=== PATIENT | female | born 1945 | race Caucasian/White ===

== ENCOUNTER 2016-10-31 05:40 | Inpatient (IN) | payer BC ==
[2016-10-28 13:25] LABS: HEMATOCRIT 37.6 % (36.0-48.0); HEMOGLOBIN 11.6 g/dL (12.0-16.0); MEAN CORPUS HGB CONC 30.9 g/dL (32.0-36.0); MEAN CORPUSCULAR HEMOGLOB 24.1 pg (26.0-34.0); MEAN PLATELET VOLUME 10.7 fL (9.2-13.0); PLATELET COUNT 297 10/3/uL (150-400); RBC DISTRIBUTION WIDTH 16.3 % (12.0-16.0); RED CELL COUNT 4.82 10/6/uL (4.0-5.6); WHITE BLOOD CELLS 5.3 10/3/uL (4.5-10.5)
[2016-10-28 13:26] LABS: MANUAL DIFF YES %
[2016-10-28 13:35] LABS: ASCORBIC ACID (UR NOT ORDER) NEG (NEG); BILIRUBIN, URINE NEGATIVE (NEG); KETONE, URINE NEGATIVE (NEG); LEUKOCYTE ESTERASE(NOT OR NEG (NEG); WBC (NOT ORDERED) (RFLEX) < 1 (0-5)
[2016-10-28 13:40] LABS: BUN (BLOOD UREA NITROGEN) 13 MG/DL (6-23); CHLORIDE, SERUM 106 MMOL/L (96-112); CO2 (CARBON DIOXIDE) 29 MMOL/L (24-34); CREATININE 0.99 MG/DL (0.55-1.02); GFR AFRICAN AMERICAN 66 ML/MIN (>=60); GFR NON AFRICAN AMERICAN 57 ML/MIN (>=60); GLUCOSE, SERUM 72 MG/DL (60-99); POTASSIUM, SERUM 4.6 MMOL/L (3.5-5.3); SODIUM, SERUM 142 MMOL/L (135-148)
[2016-10-28 13:47] LABS: BAND NEUTROPHILS 2 %; BASOPHILS 2 %; BASOPHILS ABSOLUTE (CALC) 0.11 10/3/uL (0.0-0.16); EOSINOPHILS 2 %; EOSINOPHILS ABSOLUTE (CALC) 0.11 10/3/uL (0.0-0.53); LYMPHOCYTES 21 %; LYMPHOCYTES ABSOLUTE (CALC) 1.11 10/3/uL (0.67-4.30); MONOCYTES 11 %; MONOCYTES ABSOLUTE (CALC) 0.58 10/3/uL (0.21-1.20); NEUTROPHILS ABSOLUTE (CALC) 3.39 10/3/uL (2.02-8.40); PLATELET ESTIMATE ADQ (ADEQUATE); POLYCHROMASIA 1+ (2-5/OIF) (0-1/OIF); SEGMENTED NEUTROPHIL (0) 62 %; TOTAL NUCLEATED CELLS 100
--- NOTE | ~2016-10-31 | OP ---
Record Of Operation [facility] [address] [place]. [address] NAME: ZAHIRA DAO : 41 STATUS : DIS IN PAT#: [id number] AGE: 71 ADM/REG DATE : 10/31/16 MR#: [id number] REPORT SERV DATE: 12/11/16 DICTATED BY: JOSE STAHL DATE: 10/31/16 REPORT STATUS : Draft TRANSCRIBED BY: MODL DATE: 10/31/16 DATE OF PROCEDURE: 10/31/2016 OPERATIVE SURGEON: Jose Stahl MD OPERATIVE DITCHING MACHINE ENGINEER: JORGE Tom COMPLICATIONS: None. ESTIMATED BLOOD LOSS: Less than 125 mL. DISPOSITION: Stable to recovery room. ANESTHESIA: General with interscalene block augmentation for postoperative pain control. PREOPERATIVE DIAGNOSES: 1. Right shoulder pain. 2. End-stage posttraumatic glenohumeral joint osteoarthritis, status post proximal humerus fracture. POSTOPERATIVE DIAGNOSES: 1. Right shoulder pain. 2. End-stage posttraumatic glenohumeral joint osteoarthritis, status post proximal humerus fracture. OPERATIVE PROCEDURE: 1. Right shoulder examination under anesthesia. 2. Right total shoulder arthroplasty using [employer] comprehensive total shoulder system. 3. Cortisone injection under sterile conditions, left shoulder. IMPLANTS USED: 4 mm small glenoid component with Regenerex post, an 8 x 83 mm mini humeral stem, and a 46 x 18 mm modular head with an E offset with a standard taper adapter. OPERATIVE PROCEDURE: The diagnoses listed above as well as the recommended surgical procedure and risks and benefits thereof were discussed in full detail with Mrs. Dao and family on the morning of 10/31/2016. The patient and family asked appropriate questions which were answered to their satisfaction. Ms. Dao is known to be high-risk patient for perioperative deep venous thrombosis. She had a history of pulmonary embolus after previous lower extremity surgery. She is being managed by Dr. Amaro, her software development advisor and has been placed on Lovenox 100 mg subcu b.i.d. preoperatively and will continue for the first four days postoperatively. We are following Dr. Amaro' recommendations. The patient understands that even with the prophylaxis, there is a risk of deep venous thrombosis in the perioperative period. We will have to be vigilant about following the protocol and doing everything we can to minimize this. Knowing this risk, the patient has elected to proceed with operative intervention. An informed consent was signed, witnessed, and place in the chart. The right upper extremity was marked for confirmation and an Record Of Operation [address] [place]. [address] NAME: ZAHIRA DAO : 41 STATUS : DIS IN PAT#: [id number] AGE: 71 ADM/REG DATE : 10/31/16 MR#: [id number] REPORT SERV DATE: 12/11/16 DICTATED BY: JOSE STAHL DATE: 10/31/16 REPORT STATUS : Draft TRANSCRIBED BY: LINDSAY DATE: 10/31/16 interscalene block was placed by the anesthesia team with good success. The patient was then wheeled to the operative arena where general endotracheal anesthesia was administered. A cortisone injection was administered into the right shoulder under sterile conditions. The patient tolerated the procedure well. A Band-Aid was applied. The injection consisted of 40 mg of Depo-Medrol mixed with 5 mL of Marcaine without epinephrine. The patient was placed in the beachchair position with all nonoperative extremities and head well-padded and secured for the duration of the case. The patient received pre-operative antibiotics. A surgical pause was performed confirming the correct patient as well as the proper surgical site and procedure. All present were in agreement. All standard anatomical landmarks as well as deltopectoral incision site were demarcated using a sterile marking pin. A 10-blade was used to create an 8 cm curvilinear incision just lateral to the coracoid process and directed towards the lateral insertion of the deltoid. The soft tissues were dissected down sharply to expose the deltopectoral fascia. The cephalic vein and the fat stripe were identified. The vein was retracted medially using careful sharp dissection. Next, a [place] Phillips retractor was placed retracting the deltoid laterally and the pectoralis and coracobrachialis medially. There was abundant scar tissue formation noted within the deltopectoral interval likely due to the trauma of the original fracture in the past. Care was taken to carefully dissect out all additional scar tissue to free up the next surgical layer and to expose the clavipectoral fascia. The deltopectoral interval was the further exposed and the clavipectoral fascia was identified. Electrocautery was used to split the clavipectoral fascia exposing the anterior surface of the subscapularis. The lesser tuberosity was identified and the subscapularis was released 1 cm medial to the lesser tuberosity. The subscapularis was then tagged using Fiber Wire suture for later repair. The biceps tendon was then released and tagged as well for later tenodesis. The glenohumeral joint was then dislocated and the humeral head was brought out the operative wound very carefully. All osteophytes were then removed using a rongeur. Our starting awl was used with increasing sizes of diaphyseal reamers to obtain the best fit with excellent cortical chatter. Because the fracture malunion, the humeral head was displaced laterally and in valgus position. Great care was taken to align the diaphyseal reamers with the shaft of the humerus and to avoid angulation or displacement in relation to the shaft. This was complicated by the fact that the malunion had healed in a valgus and retroverted position. We were able to identify the canal of the humerus and stayed true to this axis as opposed to the fracture malunion. The intramedullary cutting jig was then assembled and set with the appropriate version to meet the patient's normal anatomy. An oscillating saw was then used to make our proximal humeral cut. The proximal humeral portion of the head was then taken to the back table and measured and matched up with our trial implants. Next, the broaches were used in increasing sizes up to the size which fit most perfectly. The head protector was placed and the proximal humerus was retracted posteriorly and inferiorly out of the way of the glenoid. The labrum was then excised in full using electrocautery. All additional osteophytes and osteochondral loose bodies were removed. Next, the glenoid reamers were used to ream the glenoid down to a healthy bleeding bone surface. Our central peg hole was then drilled and our peg guide was used to drill the subsequent three peg holes. A coring drill was then used to core for the glenoid post. A trial glenoid was then placed and found to fit perfectly. Next, the cement was mixed and placed into the peg holes. A polyethylene glenoid was assembled with an appropriate post and tapped into place. An excellent scratch fit was obtained. Pulsatile lavage was used to Record Of Operation [address] [place]. [address] NAME: ZAHIRA DAO : 41 STATUS : DIS IN PAT#: [id number] AGE: 71 ADM/REG DATE : 10/31/16 MR#: [id number] REPORT SERV DATE: 12/11/16 DICTATED BY: JOSE STAHL DATE: 10/31/16 REPORT STATUS : Draft TRANSCRIBED BY: LINDSAY DATE: 10/31/16 irrigate this implant as well as the glenohumeral joint. The proximal humerus was again brought out the operative wound. Trial humeral head implants were then tested. The stem was implanted into the proximal humerus after copious irrigation with sterile saline. This was impacted into place. Our Versa Dial was set and then impacted on the back table with an excellent Heath-Taper fit. This was then placed into the proximal humeral stem component and impacted into place with excellent security. At this juncture, the glenohumeral joint was then reduced once again. The glenohumeral joint alignment was near anatomic. Irrigation was used under pulsatile lavage to irrigate out the operative wound as well as the implants. Bone holes had been predrilled through the lesser tuberosity and four #2 Fiber Wire sutures were passed through this region. These were then taken through the soft tissues laterally and then tied down to our previously placed subscapularis sutures. An excellent repair of the subscapularis was obtained back down to the lesser tuberosity with no instability whatsoever. The biceps tendon was then tenodesed. The rotator interval was then closed also with #2 Fiber Wire suture. This layer was then again washed out with pulsatile lavage and copious amounts of sterile normal saline. The deltopectoral interval was closed with 2-0 undyed Vicryl. 2-0 undyed Vicryl was used to close the subcutaneous layer and a running Monocryl was placed below the skin. Steri-Strips were applied. Sterile dressing was then secured with Medipore tape. The patient was placed in an Ultra-Sling for post-operative immobilization. The patient was then awakened from anesthesia without difficulty and transferred to the post-anesthesia care unit in stable condition where the postoperative examination was within normal limits understanding that the interscalene block was still in effect. A lengthy discussion was held with the patient's family detailing all operative findings as well as procedures performed with all questions answered to their satisfaction. Again we will follow Dr. Amaro' recommendations for DVT prophylaxis. We will keep the patient on 100 mg of subcutaneous Lovenox injected b.i.d. She can also restart her Jantoven as soon as Dr. Amaro would like her to. We will also encourage her to work on range of motion exercises to the elbow, forearm, wrist, and hand immediately in an effort to increase circulation and reduce the risk of venous stasis. The patient understands these details and has agreed to comply. CCS/MODL Jose Stahl M.D. / [id number] CC: Jose Stahl M.D.
--- NOTE | ~2016-10-31 | DS ---
Discharge Summary [facility] [address] [place]. [address] NAME: ZAHIRA LEAL : 41 STATUS : DIS IN PAT#: [id number] AGE: 71 ADM/REG DATE : 10/31/16 MR#: [id number] REPORT SERV DATE: 11/22/16 DICTATED BY: SILVANO STAHL DATE: 11/21/16 REPORT STATUS : Draft TRANSCRIBED BY: LINDSAY DATE: 11/21/16 Data Collection from hospitalization DISCHARGE DIAGNOSES: 1. Right shoulder pain. 2. End-stage posttraumatic glenohumeral joint osteoarthritis, status post proximal humerus fracture. 3. Osteoporosis. 4. Toe fungus. 5. History of pulmonary embolus and deep venous thrombosis. 6. Former smoker. CONSULTATIONS: Angelo George APN PROCEDURES PERFORMED: 1. Right shoulder examination under anesthesia; right total shoulder arthroplasty using [employer] comprehensive total shoulder system; cortisone injection under sterile conditions, right shoulder on 10/31/2016. 2. Right shoulder open hematoma evacuation on 11/05/2016. 3. Venous Doppler ultrasound of the right upper extremity. 4. Arteriogram of the aortic arch and right upper extremity on 11/05/2016. 5. CTA of the chest on 11/06/2016. PATHOLOGY: Right humeral head - benign bone and cartilage with degenerative joint disease with extensive cartilaginous eburnation, focal osteoblastic and osteoclastic activity and medullary fibrosis, focal medullary hemorrhage present, no metastatic malignancy or lymphoid or plasma cell neoplasm. MEDICATIONS: Bumex 1 mg daily, vitamin B12 500 mcg every morning, Os-Isaac plus D 1000 mg every day at bedtime, vitamin D3 2000 units every morning, Colace 100 mg twice a day, Flonase nasal spray two sprays in each nostril at bedtime, MiraLAX powder one packet daily, Lamisil 250 mg every day at bedtime, Jantoven 6 mg daily as instructed, Tylenol 500 mg every six hours as needed, Mylanta 30 mL as needed, [place] 5/325 one tablet every four hours as needed, Robaxin 750 mg twice a day as needed, milk of magnesia 30 mL as needed, Zofran 4 mg IV every four hours as needed, Prolia 60 mg subcutaneously every six months as instructed, iron sulfate 300 mg three times a day with meals as instructed, and Percocet 5/325 as instructed. CONDITION AT DISCHARGE: Stable. DISPOSITION: The patient was discharged to [facility] on a cardiac/Coumadin diet with activities as instructed. HOSPITAL COURSE: This is a 71-year-old female who has had right shoulder pain. She was found to have end-stage posttraumatic glenohumeral joint osteoarthritis, status post proximal humerus fracture. Treatment options were discussed and it was elected to proceed with surgical intervention. She was admitted to the hospital at this time for further evaluation and treatment. Discharge Summary [facility] [address] [place]. [address] NAME: ZAHIRA LEAL : 41 STATUS : DIS IN PAT#: [id number] AGE: 71 ADM/REG DATE : 10/31/16 MR#: [id number] REPORT SERV DATE: 11/22/16 DICTATED BY: SILVANO STAHL DATE: 11/21/16 REPORT STATUS : Draft TRANSCRIBED BY: LINDSAY DATE: 11/21/16 Upon admission, she was taken to the operating room where she underwent the above-mentioned procedure. She tolerated this well, and there were no complications. On postop day #1, she was evaluated by Physical Therapy. She was doing well. She still complained of some back pain. She had normal distal pulses. MODESTO/SCDs remained in place bilaterally. H and H had decreased. She was transfused two units of packed red blood cells. On postop day #2, she was up sitting in a bedside chair. She did have some nausea. She complained of pain in the right shoulder, that was 6/10. She was using the pain pump. CPAP was used at bedtime. On 11/03/2016, the patient was complaining that the nurse was giving her pain medications due to hypotension. It was explained to the patient that narcotics would decrease her blood pressure more. INR level was 1.8. On 11/03/2016, the patient was seen by Angelo George. Due to her history of pulmonary embolus with acute blood loss anemia postoperatively, her hemoglobin had dropped from 11.6 preoperatively to 7.4 postoperatively. She received two units of packed red blood cells and hemoglobin went back up to 9.3. On the day of this consult, it went back down to 6.0 and she was currently receiving two more units of packed red blood cells. She was started on Lovenox. Her Coumadin was resumed. INR level was currently 1.8. Lovenox was going to be stopped. That evening's dose of Coumadin would be held. INR level was currently 1.8. She had some surgical site oozing. We were hopeful that after stopping Lovenox and holding Coumadin that surgical site oozing would stop and hemoglobin would stabilize without having to reverse INR, but we would do so if necessary with fresh frozen plasma and vitamin K. On 11/04/2016, she was complaining of the inability to move her right upper extremity. Her pain was controlled. She was tolerating oral intake. The patient had increased ecchymosis and edema of the right shoulder to the elbow. It was felt that she had a developing hematoma due to necessary DVT prophylaxis with the patient with a known history of DVT/pulmonary embolus. She was found to have a jfdbezjh-dw-hdemi hematoma at the surgical site. She had undergone a venous Doppler ultrasound of the right upper extremity. There was no evidence of deep venous thrombosis. There was a large hematoma in the right arm that measured 14 cm x 3.6 cm. Hemoglobin level was still 6.0 after two more units of packed red blood cells. INR level was 1.9. The patient was complaining of a lot of pain and pressure in the right shoulder secondary to the hematoma. White count was 12.4. We were going to reverse Coumadin. Vitamin K was given as well as two units of fresh frozen plasma. She was transfused two more units of packed red blood cells. The following day, arteriogram of the aortic arch and right upper extremity was performed. The patient was taken to the operating room to undergo right shoulder open hematoma evacuation. She tolerated this well, and there were no complications. She received three more units of packed red blood cells. She was reevaluated by Physical Therapy. On 11/06/2016, her pain was much improved. She had decreased right upper extremity edema. Gentle range of motion was being performed. Anticoagulation would be held for 48 hours. INR level was 1.1. She said she was feeling better. A CTA of the chest was performed. On 11/07/2016, her sling was changed to a bigger size. She said she was feeling better. The next day, she was given Coumadin. She was doing much better. The edema in the right upper extremity was resolving, range of motion had increased. Jantoven was going to be restarted. She felt like her right hand nurse liaison was stronger. Over the next couple of days, she was feeling better. She continued to progress. She was ambulating in her room. Discharge Summary [facility] [address] [place]. [address] NAME: ZAHIRA LEAL : 41 STATUS : DIS IN PAT#: [id number] AGE: 71 ADM/REG DATE : 10/31/16 MR#: [id number] REPORT SERV DATE: 11/22/16 DICTATED BY: SILVANO STAHL. DATE: 11/21/16 REPORT STATUS : Draft TRANSCRIBED BY: LINDSAY DATE: 11/21/16 Discharge planning was performed. On 11/11/2016, discharge instructions were given. Due to her improved and stable condition, she was discharged to [facility] with the above-stated instructions. Information collected by: Rachael Bradshaw I submit the above information as my discharge summary. TG/LINDSAY Silvano Stahl M.D. / [id number] CC: Emiliana Rodriguez AZHAR S. [facility]
--- NOTE | ~2016-10-31 | CN ---
Consultation Report [facility] [address] [place]. [address] NAME: ZAHIRA LEAL : 41 STATUS : ADM IN [facility]#: [id number] AGE: 71 ADM/REG DATE : 10/31/16 MR#: [id number] REPORT SERV DATE: 11/03/16 DICTATED BY: ANGELO CERVANTES DATE: 11/03/16 REPORT STATUS : Draft TRANSCRIBED BY: MODL DATE: 11/03/16 NEW CONSULT DATE OF CONSULTATION: 11/03/2016 REASON FOR CONSULT: History of PE with acute blood loss anemia postoperatively HISTORY OF PRESENT ILLNESS: This is a 71-year-old female who has been admitted with a history of osteoarthritis of the glenohumeral joint who is now postop day 3, status post right total shoulder arthroplasty. This lady has a history of PE 7 years ago and a history of DVT remotely with . Before that, she is on permanent Coumadin therapy. The patient has tolerated procedure well; however, postoperatively, her hemoglobin dropped from 11.6 preop to 7.4 postoperatively. She got 2 units of packed red blood cells. Her hemoglobin went up to 9.3, and then went down again to 6.0 today and she is currently receiving a first of two more units of packed red blood cells. She was started on Lovenox 1 mg/kg postoperatively and also her Coumadin was resumed. Her INR is currently 1.8. She is currently hemodynamically stable and currently experiencing no lightheadedness, chest pain, or palpitations. She denies any shortness of breath, chest pain, nausea, vomiting, or abdominal pain, has been tolerating her diet after surgery and been able to move with physical therapy, although she has had significant pain from the right shoulder. PAST MEDICAL HISTORY: 1. History of PE and DVT. 2. Osteoporosis. 3. Toe fungus. PAST SURGICAL HISTORY: Hysterectomy in 2001; bilateral cataracts in 1997; colonoscopy in 2011; right leg fracture, rods and plates inserted in 2011; bilateral leg varicose vein surgery 1979; and apparently repeated again in 2009. SOCIAL HISTORY: The patient is retired. No smoking. No alcohol. FAMILY HISTORY: Noncontributory. REVIEW OF SYSTEMS: A 14-point reviewed with the patient and all other systems were negative except as previously mentioned. ALLERGIES: PENICILLIN. CURRENT MEDICATIONS: 1. Vitamin B12 of 500 mcg p.o. daily. 2. Calcium carbonate with vitamin D 1200 mg p.o. at bedtime. 3. Cholecalciferol 2000 units p.o. daily. 4. Colace 100 mg p.o. b.i.d. Consultation Report [facility] [address] [place]. [address] NAME: ZAHIRA LEAL : 41 STATUS : ADM IN [facility]#: [id number] AGE: 71 ADM/REG DATE : 10/31/16 MR#: [id number] REPORT SERV DATE: 11/03/16 DICTATED BY: ANGELO CERVANTES DATE: 11/03/16 REPORT STATUS : Draft TRANSCRIBED BY: LINDSAY DATE: 11/03/16 5. Enoxaparin 100 mg subcu b.i.d. 6. Pepcid 20 mg p.o. b.i.d. 7. Fluticasone nasal spray daily. 8. Ropivacaine pump. 9. Coumadin 5 mg p.o. daily. 10.Lamisil 250 mg p.o. at bedtime. ALLERGIES: PENICILLIN. PHYSICAL EXAMINATION: VITAL SIGNS: Blood pressure 101/51, heart rate 79, respirations 18, O2 saturation 94% on room air, and temperature 98.4. General: The patient generally cooperative. No apparent distress, awake. Awake, pale. NEURO: Alert and oriented x3. Cranial nerves II through XII grossly intact. Pupils PERRLA. No focal deficits noted. NECK: No JVD. LUNGS: Clear to auscultation bilaterally. Normal respiratory effort. CARDIOVASCULAR: No murmurs auscultated. Regular rhythm. ABDOMEN: Soft, nontender. Active bowel sounds. EXTREMITIES: No edema. Right shoulder has lots of bruising and edema with evidence of hematoma postoperatively to the right surgical shoulder. LABORATORY DATA: Sodium 142, potassium 4.7, chloride 108, BUN 13, creatinine 0.88, glucose 133, calcium 8.1, white blood cells 5.3, hemoglobin 6.0, hematocrit 19.4, platelets 297, and INR 1.8. ASSESSMENT AND PLAN: 1. Right total shoulder arthroplasty, postop day three, further plans per surgery, possibly will need rehab versus home with home health. 2. Obstructive sleep apnea, CPAP at bedtime. 3. History of PE 7 years ago, status post vein stripping with history of DVT with , on permanent Coumadin therapy, currently on home Coumadin and enoxaparin for bridging. INR currently 1.8. 4. Acute blood loss anemia. Hemoglobin is currently 6.0 after two units of packed red cells with patient being started on Lovenox and Coumadin postoperatively. The patient is still on Lovenox and Coumadin. First of two units of packed red blood cells is infusing. We will stop Lovenox, hold tonight's dose of Coumadin. I will not reverse INR at this time unless bleeding continues. We will recheck INR in the morning and recheck hemoglobin two hours after transfusion completes. If hemoglobin is still less than 7.0, we will transfuse further but have the nurse call for further orders this evening if necessary with consideration for reversing Coumadin and will recheck CBC and BMP in the morning. Hopefully, the patient is still oozing at the surgical site which did not stop because of being on the Lovenox immediately postoperatively and now with the Coumadin coming up to 1.8, so hopefully after stopping Lovenox, surgical site oozing will stop and hemoglobin will stabilize without having to reverse INR, but will Consultation Report [address] [place]. [address] NAME: ZAHIRA LEAL : 41 STATUS : ADM IN [facility]#: [id number] AGE: 71 ADM/REG DATE : 10/31/16 MR#: [id number] REPORT SERV DATE: 11/03/16 DICTATED BY: ANGELO CERVANTES DATE: 11/03/16 REPORT STATUS : Draft TRANSCRIBED BY: MEGANL DATE: 11/03/16 do so if necessary with FFP and vitamin K. TDR/MODL Angelo Cervantes APN / [id number] CC: Emiliana Rodriguez MD
--- NOTE | ~2016-10-31 | OP ---
Record Of Operation [facility] [address] [place]. [address] NAME: RADHA DAO : 41 STATUS : DIS IN PAT#: [id number] AGE: 71 ADM/REG DATE : 10/31/16 MR#: [id number] REPORT SERV DATE: 12/13/16 DICTATED BY: JOSE STAHL DATE: 11/05/16 REPORT STATUS : Draft TRANSCRIBED BY: MODL DATE: 11/05/16 DATE OF PROCEDURE: 11/05/2016 OPERATIVE SURGEON: Jose Stahl MD OPERATIVE JOURNEYMAN PATTERNMAKER: JORGE Tom. COMPLICATIONS: None. BLOOD LOSS: Approximately 500 mL. DISPOSITION: Stable recovery room. ANESTHESIA: General. PREOPERATIVE DIAGNOSES: 1. Right shoulder pain. 2. Postoperative hematoma, status post total shoulder arthroplasty. POSTOPERATIVE DIAGNOSES: 1. Right shoulder pain. 2. Postoperative hematoma, status post total shoulder arthroplasty. OPERATIVE PROCEDURE: Right shoulder open hematoma evacuation. OPERATIVE NOTE: The diagnoses listed above as well as recommended surgical procedure, risks, benefits, thereof were discussed in full detail with Radha Dao and family on the evening of 11/05/2016. The patient and family asked appropriate questions, which were answered to their satisfaction. Ms. 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 She was on perioperative anticoagulation (inaudible) with a known risk, however, to avoid the complication of the deep venous thrombosis and possible pulmonary embolism. The decision was made to move forward with DVT prophylaxis as per the recommendations of her slab worker managing her anticoagulation status. Due to the increasing size of the hematoma as well as the inability to maintain stable H and H, the decision was made to move forward with it and evacuation of the hematoma. An arteriogram was performed through Interventional Radiology which confirmed that there was no active bleeding. This was more than likely due to just oozing in the postoperative phase due to the anticoagulation effect of the mixture of Lovenox as well as the Jantoven. Informed consent was signed, witnessed, and placed in the chart. The right upper extremity was marked for confirmation and the patient was wheeled to the operative arena where general anesthesia was administered. The patient was placed in a slightly upright position of approximately 30 degrees, bent at the waist. The right upper extremity was then prepped and draped in typical sterile fashion. A surgical pause was performed confirming both correct patient as well as proper surgical site and procedure. Record Of Operation [facility] [address] [place]. [address] NAME: RADHA DAO : 41 STATUS : DIS IN PAT#: [id number] AGE: 71 ADM/REG DATE : 10/31/16 MR#: [id number] REPORT SERV DATE: 12/13/16 DICTATED BY: JOSE STAHL DATE: 11/05/16 REPORT STATUS : Draft TRANSCRIBED BY: MODL DATE: 11/05/16 All present were in agreement. The patient received appropriate antibiotics for perioperative antibiosis. The previous deltopectoral incision was recreated by splitting the sutures in the subcuticular layers. The soft tissues were dissected bluntly to expose the mehran-incisional hematoma. The hematoma tracked distally into the axilla as well as medially and below the pec major. The entire hematoma was evacuated manually and pulsatile lavage was used to irrigate out the operative wound. Our previous double row subscapularis rotator cuff repair was visualized and found to be intact without evidence for disruption. Deltopectoral interval was once again fully cleansed of all hematoma. There was abundant hematoma but also clear drainage typical for Lovenox type drainage. The wound was again irrigated with copious amounts of sterile saline and pulsatile lavage. A tranexamic acid was then used within the wound to treat oozing/bleeding. There were no active bleeders noted. The wound was then closed in layered fashion. Sterile dressing was placed over the skin. The patient was then placed in a sling. The patient then awakened from anesthesia without difficulty and transferred to the postanesthesia care unit in stable condition, where her postoperative exam was within normal limits. The plan is to get the patient to a stable coagulation status. We are going to hold her anticoagulants for a period of 48 to 72 hours. We are going to go ahead and give her additional two units of packed red blood cells in an effort to bring her H and H backup to more appropriate level. Drain was placed deep within the wound to allow for additional drainage and avoid the risk of recurrent postoperative hematoma. We will keep a close eye on this. Once we likely reached to stable state of hemostasis, we will restart the patient's anticoagulants with a very gradual ramp up in an effort to get her back to a prophylactic INR. The patient also has a filter which was placed in the past which was the second layer security at least to reduce the risk of a pulmonary embolus. A lengthy discussion was held with the patient's family, detailing all operative findings as well as procedures performed with all questions answered to their satisfaction. CCS/MODL Jose Stahl M.D. / [id number] CC: Emiliana Rodriguez
[~2016-10-31 05:40] MED LIST: ACET500CAP PO; B12250T PO; JANTOVEN5 MG PO; LAM250 PO; LOVENOX1C SC; NASONEX NAS; OS500+D PO; PROLIA60 MG/1 ML SC; ULTRAM50 PO; VITAMIN D31000 UNIT PO
[2016-10-31 06:35] LABS: INTERNATIONAL NORMAL RATI 1.1 UNITS (-); PROTIME (NOT ORD) 14.3 SEC (12.0-14.5)
[2016-11-01 05:40] LABS: BUN (BLOOD UREA NITROGEN) 13 MG/DL (6-23); CALCIUM, SERUM 8.1 MG/DL (8.5-10.4); CHLORIDE, SERUM 108 MMOL/L (96-112); CO2 (CARBON DIOXIDE) 26 MMOL/L (24-34); CREATININE 0.88 MG/DL (0.55-1.02); GFR AFRICAN AMERICAN 76 ML/MIN (>=60); GFR NON AFRICAN AMERICAN 65 ML/MIN (>=60); POTASSIUM, SERUM 4.7 MMOL/L (3.5-5.3); SODIUM, SERUM 142 MMOL/L (135-148)
[2016-11-01 05:41] LABS: INTERNATIONAL NORMAL RATI 1.3 UNITS (-); PROTIME (NOT ORD) 16.4 SEC (12.0-14.5)
[2016-11-01 05:53] LABS: HEMATOCRIT 24.3 % (36.0-48.0); HEMOGLOBIN 7.4 g/dL (12.0-16.0)
[2016-11-01 05:55] LABS: GLUCOSE, SERUM 133 MG/DL (60-99)
[2016-11-01 21:05] LABS: HEMATOCRIT 28.8 % (36.0-48.0); HEMOGLOBIN 9.3 g/dL (12.0-16.0)
[2016-11-02 05:16] LABS: INTERNATIONAL NORMAL RATI 1.5 UNITS (-); PROTIME (NOT ORD) 18.2 SEC (12.0-14.5)
[2016-11-03 07:27] LABS: INTERNATIONAL NORMAL RATI 1.8 UNITS (-); PROTIME (NOT ORD) 20.5 SEC (12.0-14.5)
[2016-11-03 07:39] LABS: HEMATOCRIT 19.4 % (36.0-48.0)
[2016-11-04 00:59] LABS: HEMOGLOBIN 7.2 g/dL (12.0-16.0)
[2016-11-04 08:47] LABS: BASOPHILS 0.2 %; BASOPHILS ABSOLUTE 0.02 10/3/uL (0.0-0.16); EOSINOPHILS 0 %; HEMATOCRIT 18.2 % (36.0-48.0); IMMATURE GRANULOCYTES 0.6 %; IMMATURE GRANULOCYTES ABSOLUTE 0.08 10/3/uL (0.0-0.11); LYMPHOCYTES 13.8 %; LYMPHOCYTES ABSOLUTE 1.71 10/3/uL (0.67-4.30); MEAN CORPUSCULAR HEMOGLOB 26.8 pg (26.0-34.0); MEAN CORPUSCULAR VOLUME 81.3 fL (80-100); MEAN PLATELET VOLUME 10.5 fL (9.2-13.0); MONOCYTES 7.7 %; MONOCYTES ABSOLUTE 0.96 10/3/uL (0.21-1.20); NEUTROPHILS 77.7 %; NEUTROPHILS ABSOLUTE 9.64 10/3/uL (2.02-8.40); NUCLEATED RED BLOOD CELLS 0.8 /100WBC (0-0); PLATELET COUNT 209 10/3/uL (150-400); RBC DISTRIBUTION WIDTH 17.2 % (12.0-16.0); RED CELL COUNT 2.24 10/6/uL (4.0-5.6); WHITE BLOOD CELLS 12.4 10/3/uL (4.5-10.5)
[2016-11-04 08:50] LABS: MANUAL DIFF NO %
[2016-11-04 08:54] LABS: INTERNATIONAL NORMAL RATI 1.9 UNITS (-); PROTIME (NOT ORD) 21.5 SEC (12.0-14.5)
[2016-11-04 08:56] LABS: BUN (BLOOD UREA NITROGEN) 18 MG/DL (6-23); CALCIUM, SERUM 7.7 MG/DL (8.5-10.4); CHLORIDE, SERUM 102 MMOL/L (96-112); CO2 (CARBON DIOXIDE) 26 MMOL/L (24-34); GFR AFRICAN AMERICAN 74 ML/MIN (>=60); GFR NON AFRICAN AMERICAN 63 ML/MIN (>=60); GLUCOSE, SERUM 130 MG/DL (60-99); POTASSIUM, SERUM 4.5 MMOL/L (3.5-5.3); SODIUM, SERUM 135 MMOL/L (135-148)
[2016-11-04 14:11] LABS: % IRON SAT 8 % (20-50); FERRITIN 24 NG/ML (8-252); IRON BINDING CAPACITY 238 MCG/DL (225-410); IRON, SERUM 20 MCG/DL (35-150)
[2016-11-05 02:36] LABS: BUN (BLOOD UREA NITROGEN) 21 MG/DL (6-23); CALCIUM, SERUM 7.6 MG/DL (8.5-10.4); CHLORIDE, SERUM 102 MMOL/L (96-112); CO2 (CARBON DIOXIDE) 28 MMOL/L (24-34); CREATININE 0.97 MG/DL (0.55-1.02); GFR AFRICAN AMERICAN 67 ML/MIN (>=60); GFR NON AFRICAN AMERICAN 58 ML/MIN (>=60); GLUCOSE, SERUM 114 MG/DL (60-99); POTASSIUM, SERUM 4.3 MMOL/L (3.5-5.3); SODIUM, SERUM 137 MMOL/L (135-148)
[2016-11-05 02:38] LABS: BASOPHILS 0.2 %; BASOPHILS ABSOLUTE 0.02 10/3/uL (0.0-0.16); EOSINOPHILS 1.5 %; EOSINOPHILS ABSOLUTE 0.13 10/3/uL (0.0-0.53); IMMATURE GRANULOCYTES 0.8 %; IMMATURE GRANULOCYTES ABSOLUTE 0.07 10/3/uL (0.0-0.11); LYMPHOCYTES 20.4 %; MEAN CORPUS HGB CONC 32.5 g/dL (32.0-36.0); MEAN CORPUSCULAR HEMOGLOB 27.4 pg (26.0-34.0); MEAN PLATELET VOLUME 10.4 fL (9.2-13.0); MONOCYTES 12.9 %; MONOCYTES ABSOLUTE 1.14 10/3/uL (0.21-1.20); NEUTROPHILS 64.2 %; NEUTROPHILS ABSOLUTE 5.66 10/3/uL (2.02-8.40); PLATELET COUNT 179 10/3/uL (150-400); RBC DISTRIBUTION WIDTH 16.3 % (12.0-16.0); RED CELL COUNT 2.41 10/6/uL (4.0-5.6); WHITE BLOOD CELLS 8.8 10/3/uL (4.5-10.5)
[2016-11-05 02:39] LABS: HEMATOCRIT 20.3 % (36.0-48.0); HEMOGLOBIN 6.6 g/dL (12.0-16.0); MEAN CORPUSCULAR VOLUME 84.2 fL (80-100)
[2016-11-05 02:40] LABS: MANUAL DIFF NO %
[2016-11-05 02:50] LABS: INTERNATIONAL NORMAL RATI 1.3 UNITS (-)
[2016-11-05 02:53] LABS: PROTIME (NOT ORD) 15.7 SEC (12.0-14.5)
[2016-11-05 17:47] LABS: HEMATOCRIT 24.7 % (36.0-48.0); HEMOGLOBIN 8.3 g/dL (12.0-16.0)
[2016-11-06 05:03] LABS: HEMOGLOBIN 9.2 g/dL (12.0-16.0)
[2016-11-06 05:05] LABS: INTERNATIONAL NORMAL RATI 1.1 UNITS (-); PROTIME (NOT ORD) 14.4 SEC (12.0-14.5)
[2016-11-06 05:06] LABS: HEMATOCRIT 27.3 % (36.0-48.0)
[2016-11-06 05:13] LABS: CALCIUM, SERUM 7.9 MG/DL (8.5-10.4); CHLORIDE, SERUM 103 MMOL/L (96-112); CO2 (CARBON DIOXIDE) 26 MMOL/L (24-34); CREATININE 0.68 MG/DL (0.55-1.02); GFR AFRICAN AMERICAN 101 ML/MIN (>=60); GFR NON AFRICAN AMERICAN 87 ML/MIN (>=60); GLUCOSE, SERUM 121 MG/DL (60-99); POTASSIUM, SERUM 4.6 MMOL/L (3.5-5.3); SODIUM, SERUM 138 MMOL/L (135-148)
[2016-11-06 05:14] LABS: BUN (BLOOD UREA NITROGEN) 14 MG/DL (6-23)
[2016-11-07 14:36] LABS: HEMATOCRIT 27.7 % (36.0-48.0); HEMOGLOBIN 9.2 g/dL (12.0-16.0)
[2016-11-07 14:49] LABS: BUN (BLOOD UREA NITROGEN) 13 MG/DL (6-23); CALCIUM, SERUM 7.9 MG/DL (8.5-10.4); CHLORIDE, SERUM 103 MMOL/L (96-112); GFR AFRICAN AMERICAN 85 ML/MIN (>=60); GFR NON AFRICAN AMERICAN 73 ML/MIN (>=60); GLUCOSE, SERUM 112 MG/DL (60-99); POTASSIUM, SERUM 4.5 MMOL/L (3.5-5.3); SODIUM, SERUM 137 MMOL/L (135-148)
[2016-11-07 14:50] LABS: CO2 (CARBON DIOXIDE) 32 MMOL/L (24-34)
[2016-11-08 06:00] LABS: HEMOGLOBIN 10.1 g/dL (12.0-16.0)
[2016-11-08 06:02] LABS: INTERNATIONAL NORMAL RATI 1.2 UNITS (-); PROTIME (NOT ORD) 14.7 SEC (12.0-14.5)
[2016-11-08 06:03] LABS: HEMATOCRIT 31.5 % (36.0-48.0)
[2016-11-08 06:06] LABS: BUN (BLOOD UREA NITROGEN) 11 MG/DL (6-23); CALCIUM, SERUM 8.2 MG/DL (8.5-10.4); CHLORIDE, SERUM 102 MMOL/L (96-112); CO2 (CARBON DIOXIDE) 30 MMOL/L (24-34); GFR AFRICAN AMERICAN 85 ML/MIN (>=60); GFR NON AFRICAN AMERICAN 73 ML/MIN (>=60); GLUCOSE, SERUM 100 MG/DL (60-99); POTASSIUM, SERUM 3.7 MMOL/L (3.5-5.3); SODIUM, SERUM 139 MMOL/L (135-148)
[2016-11-09 05:21] LABS: HEMOGLOBIN 10.4 g/dL (12.0-16.0)
[2016-11-09 05:28] LABS: INTERNATIONAL NORMAL RATI 1.2 UNITS (-); PROTIME (NOT ORD) 14.8 SEC (12.0-14.5)
[2016-11-09 05:35] LABS: CALCIUM, SERUM 8.4 MG/DL (8.5-10.4); CHLORIDE, SERUM 101 MMOL/L (96-112); CO2 (CARBON DIOXIDE) 33 MMOL/L (24-34); GFR AFRICAN AMERICAN 85 ML/MIN (>=60); GFR NON AFRICAN AMERICAN 73 ML/MIN (>=60); GLUCOSE, SERUM 98 MG/DL (60-99); POTASSIUM, SERUM 3.7 MMOL/L (3.5-5.3); SODIUM, SERUM 139 MMOL/L (135-148)
[2016-11-09 05:36] LABS: BUN (BLOOD UREA NITROGEN) 15 MG/DL (6-23)
[2016-11-10 05:59] LABS: INTERNATIONAL NORMAL RATI 1.3 UNITS (-); PROTIME (NOT ORD) 15.8 SEC (12.0-14.5)
[2016-11-11 06:43] LABS: BASOPHILS ABSOLUTE 0.07 10/3/uL (0.0-0.16); EOSINOPHILS 4.2 %; EOSINOPHILS ABSOLUTE 0.31 10/3/uL (0.0-0.53); HEMATOCRIT 32.7 % (36.0-48.0); HEMOGLOBIN 10.4 g/dL (12.0-16.0); IMMATURE GRANULOCYTES 1.4 %; LYMPHOCYTES 16.3 %; LYMPHOCYTES ABSOLUTE 1.19 10/3/uL (0.67-4.30); MEAN CORPUS HGB CONC 31.8 g/dL (32.0-36.0); MEAN CORPUSCULAR HEMOGLOB 29.7 pg (26.0-34.0); MEAN PLATELET VOLUME 9.8 fL (9.2-13.0); MONOCYTES 10.4 %; MONOCYTES ABSOLUTE 0.76 10/3/uL (0.21-1.20); NEUTROPHILS 66.7 %; NEUTROPHILS ABSOLUTE 4.87 10/3/uL (2.02-8.40); PLATELET COUNT 229 10/3/uL (150-400); WHITE BLOOD CELLS 7.3 10/3/uL (4.5-10.5)
[2016-11-11 06:46] LABS: MEAN CORPUSCULAR VOLUME 93.4 fL (80-100)
[2016-11-11 06:47] LABS: MANUAL DIFF NO %; RBC DISTRIBUTION WIDTH 21.1 % (12.0-16.0)
[2016-11-11 06:50] LABS: INTERNATIONAL NORMAL RATI 1.6 UNITS (-)
[2016-11-11 06:51] LABS: PROTIME (NOT ORD) 18.7 SEC (12.0-14.5)
== END 2016-11-11 17:04 | DRG 483 ==
LOC: SDC/OF 05:40 → PACU 11:49 → 1SO 14:01
PROVIDERS: Internal Medicine; Nurse Practitioner Acute Care; Nurse Practitioner Gerontology; Specialist
PROC: 0KC50ZZ Extirpation of Matter from Right Shoulder Muscle, Open Approach (ICD-10-PCS; 2016-10-31)
PROC: 0RRJ0JZ Replacement of Right Shoulder Joint with Synthetic Substitute, Open Approach (ICD-10-PCS; principal; 2016-10-31 08:00)
PROC: 30233N1 Transfusion of Nonautologous Red Blood Cells into Peripheral Vein, Percutaneous Approach (ICD-10-PCS; 2016-11-04)
PROC: 30233K1 Transfusion of Nonautologous Frozen Plasma into Peripheral Vein, Percutaneous Approach (ICD-10-PCS; 2016-11-04)
DX: M19.011 Primary osteoarthritis, right shoulder (principal); D62 Acute posthemorrhagic anemia; M96.840 Postprocedural hematoma of a musculoskeletal structure following a musculoskeletal system procedure; M06.9 Rheumatoid arthritis, unspecified; Y83.8 Other surgical procedures as the cause of abnormal reaction of the patient, or of later complication, without mention of misadventure at the time of the procedure; R09.02 Hypoxemia; G47.33 Obstructive sleep apnea (adult) (pediatric); Z79.01 Long term (current) use of anticoagulants; Z79.899 Other long term (current) drug therapy; Z87.891 Personal history of nicotine dependence; Z86.711 Personal history of pulmonary embolism; Z86.718 Personal history of other venous thrombosis and embolism; Z88.0 Allergy status to penicillin; Z91.048 Other nonmedicinal substance allergy status
CPT/HCPCS: 36216; 36221; 36225; 36415; 71010; 71275; 73030-RT; 75710; 80048; 81001; 82728; 83540; 83550; 83735; 83880; 85014; 85018; 85025; 85610; 86850; 86900; 86901; 86920; 87641; 88305; 88311; 93971; 97110-GO; 97110-GP; 97116-GP; 97162-GP; 97164-GP; 97166-GO; 97530-GP; 99152; 99153; A9270-GY; C1769; C1776; C1894; C9113; J0690; J1030; J1170; J1940; J2250; J2370; J2405; J2710; J2795; J2916; J3010; P9016; P9040; P9045; P9059; Q9967